=== PATIENT | female | born 1975 | race Caucasian/White ===

== ENCOUNTER 2017-12-13 15:30 | Inpatient (IN) | payer OTHER ==
[2017-12-13 16:28] VITALS: BMI 29.7
--- NOTE | 2017-12-13 19:29 | HP ---
She is scheduled for surgery on 12/17/2017 HISTORY OF PRESENT ILLNESS: Ms. Monroe is a 42-year-old white female with previous right salpingo-o ophorectomy for endometrioma approximately 10 years prior. She presented to my office on 10/23/2017 with report of increasing pelvic pain and urinary frequency along with feeling bloated. She also rep orts very heavy and painful periods. She had restarted on oral contraceptives recently, but this vang s not appear to improve her symptoms. An exam was performed at that visit in the pelvis showing a pe lvic mass. Ultrasound was performed. Pelvic ultrasound that day showed the uterus measuring 9.9 x 7 .1 x 7.44 cm with endometrial lining of 10 mm. There were multiple small uterine fibroids throughout the myometrium. She did have a large and with some septations pelvic mass, most likely adnexal mass filling the pelvis measuring 11.6 x 5.9 x 9.2 cm. CA-125 was obtained which was normal at 21.9. Th e patient also reports normal Pap smear in the past 3 years. PAST MEDICAL HISTORY: Noted for recent hypothyroidism diagnosis. PAST SURGICAL HISTORY: Previous oophorectomy for endometriosis. She has also had elbow surgery with arthroscopy. It is noted Pap smear was negative and normal on 01/2017. FAMILY HISTORY: Diabetes in her mother and both her sister and father have hypertension. PHYSICAL EXAMINATION: VITAL SIGNS: Her blood pressure is 116/78, height 5 feet 5 inches, weight 177 pounds, BMI of 29.5. HEENT: Within normal limits. CHEST: Clear to auscultation. HEART: Regular rate and rhythm. S1, S2 heart sounds, no murmurs, rubs or gallops. ABDOMEN: Soft, nondistended. There was a fullness in her lower abdomen palpable approximately 14-16 weeks' size. No hernia of her midline well healed vertical incision site from a prior surgery. PELVIC: Vulva and vagina had no lesions. Bladder and urethra had no lesions or masses. There was n o tenderness. Vagina, no significant cystocele, rectocele appreciated. Cervix had no discharge or v isible lesions seen. Uterus nontender with no uterine prolapse. It was enlarged. There is on pelvi c exam an ovarian mass left adnexal fullness 14-16 week size consistent with pelvic mass with confirm ation noted by the ultrasound findings. ASSESSMENT: A 42-year-old white female with a large complex mainly cystic left adnexal mass with nor mal CA-125 level of 21.9. The patient also with uterine leiomyomata with menorrhagia complaints. PLAN: Proceed with SELENE/LSO. Risks and benefits of procedure discussed in detail with the patient. She is set for surgery on 12/17.
[2017-12-17] MEDS ORDERED: Gabapentin 300 MG CAP ONE (06:08)
[2017-12-17] MEDS ORDERED: Famotidine/PF 20 mg/2ml Vial ONE (06:09)
[2017-12-17] MEDS ORDERED: CEFAZOLIN/Water 2 GM/20 ML SYRINGE ONE (06:09)
[2017-12-17] MEDS ORDERED: CeleCOXIB 100 MG CAP ONE (06:09)
[2017-12-17] MEDS ORDERED: Lidocaine 4% Topical Sol 50 ML BOT ONE (06:58)
[2017-12-17] MEDS ORDERED: Fentanyl 100 MCG/2 ML VIAL ONE ×2 (06:58→10:40)
[2017-12-17] MEDS ORDERED: Midazolam HCl 2 mg/2 ml Vial ONE (07:21)
[2017-12-17] MEDS ORDERED: HYDROmorphone 2 MG/ML VIAL ONE (07:30)
[2017-12-17] MEDS ORDERED: Bupivacaine PF 0.5% 30 ML VIAL ONE (08:12)
[2017-12-17] MEDS ORDERED: Ropivacaine HCl/PF 750 ML in Premix Bag 1 BAG NERVE BLCK SCH (10:45)
[2017-12-17] MEDS ORDERED: Ondansetron HCl/PF 4 MG/2 ML Vial IVP PRN (12:20)
[2017-12-17] MEDS ORDERED: diphenhydrAMINE 25 MG CAP PO PRN (12:20)
[2017-12-17] MEDS ORDERED: Bisacodyl 10 MG SUPP PR PRN (12:20)
[2017-12-17] MEDS ORDERED: Acetaminophen 325 MG TAB PO PRN (12:20)
[2017-12-17] MEDS ORDERED: Zolpidem Tartrate 5 MG TAB PO PRN (12:20)
[2017-12-17] MEDS ORDERED: Simethicone Chewable 80 MG TAB PO PRN (12:20)
[2017-12-17] MEDS ORDERED: traMADol HCl 50 MG TAB PO PRN ×2 (12:20)
[2017-12-17] MEDS ORDERED: Morphine 10 MG/ML VIAL SLOW IVP PRN (12:20)
[2017-12-17] MEDS ORDERED: Promethazine HCl 25 MG/ML VIAL IM PRN (12:20)
[2017-12-17] MEDS ORDERED: Ondansetron HCl/PF 4 MG/2 ML Vial ONE (12:24)
[2017-12-17] MEDS ORDERED: Dexamethasone 20 MG/5 ML VIAL ONE (12:24)
[2017-12-17] MEDS ORDERED: Metoclopramide HCl 10 MG/2 ML VIAL ONE (12:24)
[2017-12-17] MEDS ORDERED: Lidocaine 1% PF 5 ML VIAL ONE (12:24)
[2017-12-17] MEDS ORDERED: PROPOFOL 200 MG/20 ML VIAL ONE (12:24)
[2017-12-17] MEDS ORDERED: Glycopyrrolate 0.2 MG/ML 5 ML SYRINGE ONE (12:24)
[2017-12-17] MEDS ORDERED: Ketorolac Tromethamine 30 MG/ML VIAL ONE (12:24)
--- NOTE | 2017-12-17 12:56 | OP ---
DATE OF PROCEDURE: 12/17/2017 PREOPERATIVE DIAGNOSES: 1. A 42-year-old white female with previous oophorectomy for endometrioma many years prior, now wit h increased pelvic pain. 2. Twelve centimeter pelvic mainly cystic mass seen on ultrasound. 3. Uterine leiomyomata. 4. Suspect recurrent endometrioma and uterine fibroids. POSTOPERATIVE DIAGNOSES: 1. A 42-year-old white female with previous oophorectomy for endometrioma many years prior, now wit h increased pelvic pain. 2. Twelve centimeter pelvic mainly cystic mass seen on ultrasound. 3. Uterine leiomyomata. 4. Suspect recurrent endometrioma and uterine fibroids. 5. Severe pelvic adhesive disease. PROCEDURE: 1. Exploratory laparotomy with supracervical hysterectomy and removal of large adnexal mass/endometr ioma. 2. Right ureterolysis. 3. Adhesiolysis pelvic adhesive disease. SURGEON: Minerva Ku M.D. MATERIAL MOVERS SURGEON: Leoncio Johnson D.O. ANESTHESIA: General endotracheal. ESTIMATED BLOOD LOSS: 150 mL. COMPLICATIONS: None. COUNTS: Correct x2. ANTIBIOTICS: Two grams Ancef inspector balance wheel motion to the operating room. PATHOLOGY: Uterus minus the cervix along with the chocolate cyst and endometrioma mass. FINDINGS: 1. Approximately 12 cm pelvic cystic mass with chocolate cyst material noted that expanded and was a dhesed to the rectum and to the posterior uterus from essentially pelvic sidewall to sidewall, status post removal of adhesiolysis. 2. Multiple small uterine fibroids, subserosal and intramural mainly located in the lower anterior u terine segment of the uterus. 3. The right ureter was adhesed to the pelvic cyst status post adhesiolysis. 4. Clear urine present in Catalan catheter post-procedure. 5. Bilateral ureteral peristalsis visualized post procedure. DISPOSITION: To the recovery room stable. DESCRIPTION OF OPERATIVE PROCEDURE: The patient previously received informed consent in regards to jessica crystal. She was taken back to the operating room where she received a general endotracheal anestheti c agent without complications. She was placed in supine position, prepped and draped in usual steril e fashion. A midline vertical incision was made through the previous scar site. It was carried down the fascia. Fascia was nicked in midline. Fascial incision was extended superiorly and inferiorly with curved Mcbride scissors and Bovie cautery. The rectus muscle bellies were divided in the midline. The peritoneal cavity was entered. Peritoneal incision was extended. The previously mentioned find ings were noted. An O'Raleigh-O'Ilan retractor was placed after the bowel was packed away from th e pelvis for the operative field site. There was significant adhesion and minimal mobility of the ut erus due to the large pelvic cyst in position of the lower uterine segment fibroids. We put a figure -of-eight suture of 0 Vicryl in the middle portion of the fundus of the uterus to aid for movement of the uterine specimen. Anatomy was identified with the round ligament on the right side and this was grasped with a Debra clamp. Two 0 Vicryl sutures were placed through the right round ligament and then this was transected with Bovie cautery. This allowed for us to develop a plane in the anterior portion of the broad ligament and the vesicouterine peritoneum which was then layered with Jerry m scissors developing a bladder flap. Additional sutures were placed in the peritoneum by the vesico peritoneum bilaterally to aid for reflection of the flap and this was sutured in the skin. A sweethe art retractor was also placed anteriorly to help for retraction and visualization of the vesicouterin e peritoneum folds. The large cyst retroperitoneally and posteriorly was identified and a plane betw een this and the pelvic sidewall was dissected once the posterior broad ligament was entered with Met zenbaum scissors. Tediously dissected this area down to the pelvic sidewall where the ureter was cedric ntified. It did appear to be running right on the edge of the large endometrioma cyst. I then proce eded to perform ureterolysis of the right ureter starting most cephalad and working down towards the pelvis past the cyst. A right-angle retractor was utilized along with DeBakeys allowing for dissecti on under the ureter and the peritoneal line and developing and freeing the ureter away from the pelvi c cyst. This continued until the ureter was free from the cyst satisfactorily in order for us to con tinue dissection. The large cyst was then noted to be adhesed to the rectum deep in the posterior cu l-de-sac that the line of the cyst was ruptured and chocolate cystic serous fluid drained from this a nd we grabbed the edge of this with a Ball and we grabbed the rectum with a Debra clamp and then this allowed for us to both bluntly and sharply dissected the endometrioma cyst from the rectum and the uterus developing a plane. Once we were able to free the left side of the utero-ovarian ligament , this was then clamped and transected and cut allowing us to have more mobility of the uterine speci men. The cyst, after it had been deflated, we grabbed the cyst wall, continued to dissect this away from the left pelvic sidewall. This allowed for mobilization of the endometriotic cyst away from the left pelvic sidewall and then we saw the ureter running lateral to this in the pelvic sidewall, away from the cyst. Continued mobilization both sharply and bluntly was carried out and this allowed for entry and identification of the left round ligament which appeared to be attenuated. This was clamp ed and then transected and suture ligated securing hemostasis. The anterior portion of the broad lig ament was entered again and this was opened and developed more the vesicouterine peritoneal reflectio n, dissecting the bladder down away from the lower uterine segment past the cervix. The left uterine vessels were then clamped with a Jacquelyn clamp in this region and transected and suture ligated. Fur ther dissection both sharply and bluntly down, which allowed us to open up the posterior cul-de-sac, the endometriotic cyst from the rectum. This mobilized this and allowed for further mobil ization of the right side of the uterine specimen. There was this dense, kind of fibrotic and perito madiha tissue was then excised and the vessels on the right at the uterine vessels were skeletonized. All was taking in account where the ureter was which once we were able to free these adhesions, this dropped the ureter more again laterally towards the pelvic sidewall away from the uterine vessels. O nce this had been secured a Jacquelyn clamp was placed in the uterine vessels in this direction, clampin g and transecting and suture ligate, securing hemostasis. There was a lower uterine segment fibroid was then removed with a myomectomy to aid with further vesicouterine peritoneal dissection. Two stra ight [place] clamps were placed just below the uterine vessels and these were then transected and suture ligated with 0 Vicryl suture securing hemostasis. The cervix was noted to be quite bulky with adhesions deeper, we decided to preserve the cervix since the patient had no history of dysplasia an d a concern for possible adhesions of the ureter deeper in this area to avoid any potential ureteral injury. The cervix was then amputated above the uterine vessel pedicles with Bovie cautery and the u terine specimen was sent along with endometriotic cyst. The stump of the cervix was then closed with interrupted [id number] sutures of 0 Vicryl for hemostasis. The pelvis again was inspected and irrigated. There was some minimal amount of oozing noted and Tisseel was placed which secured hemost asis in the posterior cul-de-sac, anterior cul-de-sac and bilateral pelvic sidewalls. At this time, we noted there was clear urine draining from the Catalan catheter and bilateral ureteral peristalsis hamilton d been visualized prior to the Tisseel placement. The O'Raleigh-O'Talavera retractor and lap sponges were all removed. The peritoneum was closed with 2-0 Vicryl suture in running continuous fashion. A n On-Q pump trocar was placed on the superior portion of the incision under the fascia and then the c atheter was replaced and the trocar was removed. The fascia was then closed with a double looped #1 PDS suture starting from the superior edge down to the inferior edge with good approximation of the f ascial closure. The On-Q pump catheter was flushed with Marcaine. The subcutaneous tissue was close d with 3-0 plain gut. Yumiko were then placed. A bandage was then placed over the incision site. The patient was awakened from anesthesia. She was then transferred to her room in stable condition.
[2017-12-17] MEDS: Ketorolac Tromethamine 30 MG/ML VIAL IVP SCH ×2 (14:03→19:59)
[2017-12-17] MEDS: Sodium Chloride 0.9% 1,000 ML IV SCH ×2 (20:01→21:23)
[2017-12-17] MEDS: Lactated Ringer's 1,000 ML IV SCH (21:23)
[2017-12-18] MEDS: Ketorolac Tromethamine 30 MG/ML VIAL IVP SCH ×3 (01:03→13:09)
[2017-12-18 05:46] LABS: Hemoglobin 10.8 g/dL (12.0-16.0); Mean Corpuscular HGB CONC 31.6 g/dL (32.0-36.0); Mean Corpuscular Volume 91.6 fL (78.0-98.0); Mean Platelet Volume 8.1 fL (7.4-10.4); Platelet Count 287 thou/uL (130-400); RBC Distribution Width 11.8 % (11.5-14.5); Red Blood Cell (RBC) Count 3.74 mill/uL (4.20-5.40); White Blood Cell (WBC) Count 13.2 thou/uL (4.8-10.8)
[2017-12-18] MEDS: Lactated Ringer's 1,000 ML IV SCH ×2 (06:42→13:02)
[2017-12-18] MEDS: Sodium Chloride 0.9% 1,000 ML IV SCH ×2 (06:43→13:02)
--- NOTE | 2017-12-18 08:01 | PDOC.EVN ---
Event Note - Event Note Event Note: S:Good pain control. Tolerating diet.. O: T99.1 P82 R20 114/56 U/o 6650 ml. Hct 34.3% ABdomen is soft/non distended. ON Q Pump in place. A/P: post op day 1 from Supracervical hyst/lso--endometrioma/uterine fibroids/ pelvic adhesive disease. Progressing well. If continues to do well, discharge this pm. Yumiko out post op day 7 anf 6 week follow up.
[2017-12-18 11:03] VITALS: BP 129/61; TEMP 99.4
[2017-12-22] MEDS ORDERED: Ibuprofen 800 MG TAB PO SCH (21:00)
== END 2017-12-18 18:00 | disposition home or self-care (01) | DRG 743 ==
LOC: SURG A 12-17 05:50 → 3SE 12-17 10:54
PROVIDERS: ADMIT Obstetrics & Gynecology; ATTEND Obstetrics & Gynecology
PROC: 0UT90ZL Resection of Uterus, Supracervical, Open Approach (ICD-10-PCS; principal; 2017-12-17)
PROC: 0UB90ZX Excision of Uterus, Open Approach, Diagnostic (ICD-10-PCS; 2017-12-17)
DX: D25.1 Intramural leiomyoma of uterus (principal); E03.9 Hypothyroidism, unspecified; R19.00 Intra-abdominal and pelvic swelling, mass and lump, unspecified site; K66.0 Peritoneal adhesions (postprocedural) (postinfection); N80.1 Endometriosis of ovary
CPT/HCPCS: 36415; 85027; 88307; A4216; J1100; J1170; J1885; J2001; J2250; J2405; J2704; J2765; J2795; J3010; S0020; S0028

== ENCOUNTER 2017-12-13 15:47 | Outpatient (CLI) | payer OTHER ==
[2017-12-13 16:19] LABS: Hemoglobin 13.5 g/dL (12.0-16.0); Mean Corpuscular HGB CONC 32.4 g/dL (32.0-36.0); Mean Corpuscular Hemoglobin 29.7 pg (27.0-31.0); Mean Corpuscular Volume 91.7 fL (78.0-98.0); Mean Platelet Volume 7.9 fL (7.4-10.4); Platelet Count 381 thou/uL (130-400); RBC Distribution Width 11.8 % (11.5-14.5); Red Blood Cell (RBC) Count 4.56 mill/uL (4.20-5.40); White Blood Cell (WBC) Count 7.9 thou/uL (4.8-10.8)
[2017-12-13 16:26] LABS: BHCG - Serum Negative (NEGATIVE); Pregs Control Background? CLEAR/WHITE (CLR/WHITE); Pregs Control Bar Appear? YES (CONTROL BAR)
== END 2017-12-13 15:48 | disposition home or self-care (01) ==
LOC: LABBT 15:47
PROVIDERS: ATTEND Obstetrics & Gynecology
DX: Z01.812 Encounter for preprocedural laboratory examination (principal); D25.9 Leiomyoma of uterus, unspecified; N83.8 Other noninflammatory disorders of ovary, fallopian tube and broad ligament
CPT/HCPCS: 84703; 85027; 86850; 86900; 86901

== ENCOUNTER 2018-12-24 16:17 | Outpatient (CLI) | payer OTHER ==
--- NOTE | 2018-12-24 16:35 | RAD ---
LUMBAR SPINE TWO VIEWS: 12/24/18 HISTORY: Dorsalgia. FINDINGS/IMPRESSION: No fracture, subluxation or bony destruction is seen. Minimal levoscoliosis is noted. POS: OFF
== END 2018-12-24 16:18 | disposition home or self-care (01) ==
LOC: BICRAD 16:17
PROVIDERS: ATTEND Orthopaedic Surgery Foot and Ankle Surgery
DX: M54.9 Dorsalgia, unspecified (principal); M41.9 Scoliosis, unspecified
CPT/HCPCS: 36415; 72100; 84439; 84443